=== PATIENT | male | born 1965 | race Caucasian/White ===

== ENCOUNTER → 2017-12-06 | Emergency (ER) | payer OTHER ==
[~2017-12-06] MED LIST: ALBUTEROL 2.5 MG/3 ML NEB NEB ONE; ALBUTEROL SULFATE 90 MCG/ACT 8.5 GM HNH INH PRN; ALBUTEROL/IPRATROPIUM 3 ML NEB NEB ONE; AZIT-1 PO; KETOROLAC 30 MG/ML VIAL IVP ONE; LISI-362 PO; LISINOPRIL 10 MG TAB PO ONE; NS(*) 0.9% 1000 ML BAG 1,000 ML IV ONE; PRED-1 PO; predniSONE 20 MG TAB PO ONE
--- NOTE | 2017-12-06 03:31 | ER Report ---
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 He just drove into [place] approximately 30 minutes. He is a daily tobacco smoker. As well as both have the same symptoms of congestion cough and worsening shortness of breath for the past week. She is in the emergency department as well. He complains of cough and shortness of breath. Also states that he is out of his lisinopril, and is worried about his elevated blood pressure. No headache, no chest pain, no abdominal pain. He denies fever chills. States he just overall feels unwell and describes fatigue and myalgias. Remainder of the 14 system rev: Yes Allergies: Coded Allergies: cephalexin (Verified Allergy, Intermediate, swelling, 12/06/17) Home Meds Active Scripts Lisinopril (LISINOPRIL) 10 Mg Tablet, 10 MG PO QDAY for 30 Days, #30 TAB Prov:ELIZABET CASPER MD 12/06/17 Prednisone 10 Mg Tab (PREDNISONE 10 MG TAB) 10 Mg Tablet, 50 MG PO QDAY for 5 Days, #25 TAB Prov:ELIZABET CASPER MD 12/06/17 Azithromycin (ZITHROMAX) 250 Mg Tablet, 1 TAB PO QDAY for 4 Days, #4 TAB Prov:ELIZABET CASPER MD 12/06/17 Reported Medications Lisinopril (LISINOPRIL) 10 Mg Tablet, 10 MG PO QDAY, TAB 12/06/17 Reviewed Nurses Notes: Yes Hx Smoking: Yes Smoking Status: Current: Every Day Smoker Exposure to Second Hand Smoke?: Yes Hx Substance Use Disorder: No Hx Alcohol Use: No Family History of: HTN Constitutional Vital Sign - Last 24 Hours 12/06/17 12/06/17 12/06/17 03:38 03:50 04:00 Temp 97.9 Pulse 73 72 77 Resp 24 16 16 B/P (MAP) 203/113 Pulse Ox 92 O2 Delivery Room Air Physical Exam General Appearance: The patient is alert, has no immediate need for airway protection and no current signs of toxicity. Eyes: Pupils equal and round no injection. Respiratory: Chest is non tender, diffuse wheezing and decreased air movement Cardiac: regular rate and rhythm Gastrointestinal: Abdomen is soft and non tender, no masses, bowel sounds normal. Extremities have full range of motion and are non tender. Skin: No rashes or lesions. DIFFERENTIAL DIAGNOSIS: After history and physical exam differential diagnosis was considered for shortness of breath including but not limited to pulmonary infectious process, COPD, asthma, pulmonary embolus and congestive heart failure. Medical Decision Making EKG/Imaging Imaging X-ray: CXR was obtained. I viewed the images myself on the PACS system. My interpretation of the images is: no evidence of pneumonia. The radiologist interpretation had no clinically significant variation from this interpretation. 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 His has the same symptoms of cough congestion and myalgias. Chest x-ray shows no evidence of pneumonia. I think this is more of a viral URI. Not consistent with a PE. The patient requested that I restart his lisinopril that he has been out of for weeks. I did give him lisinopril 10 mg which is his prescribed dose. I will refill his prescription. Also discharge him on a 5 day burst of steroids as well as azithromycin. Decision to Disposition Date: Dec 06, 2017 Decision to Disposition Time: 04:37 Depart Departure Latest Vital Signs Vital Signs Date Time Temp Pulse Resp B/P (MAP) Pulse Ox O2 Delivery O2 Flow Rate FiO2 12/06/17 04:00 77 16 12/06/17 03:38 97.9 203/113 92 Room Air Impression: Primary Impression: Viral URI with cough Condition: Improved Disposition: HOME OR SELF-CARE New Scripts Lisinopril (LISINOPRIL) 10 Mg Tablet 10 MG PO QDAY for 30 Days, #30 TAB Prov: ELIZABET CASPER MD 12/06/17 Prednisone 10 Mg Tab (PREDNISONE 10 MG TAB) 10 Mg Tablet 50 MG PO QDAY for 5 Days, #25 TAB Prov: ELIZABET CASPER MD 12/06/17 Azithromycin (ZITHROMAX) 250 Mg Tablet 1 TAB PO QDAY for 4 Days, #4 TAB Prov: ELIZABET CASPER MD 12/06/17 Patient Instructions: Upper Respiratory Infection (ED) ELIZABET CASPER MD Dec 06, 2017 03:31
--- NOTE | 2017-12-06 04:41 | RADIOLOGY IMAGING REPORT ---
FACILITY: [facility] PATIENT NAME: Jonathan Chauhan : 1965 MR: [id number] V: [id number] EXAM DATE: ORDERING PHYSICIAN: ELIZABET CASPER TECHNOLOGIST: Location: [facility] Patient: Jonathan Chauhan : 1965 Visit/Account:[id number] Date of Sevice: 12/06/2017 EXAMINATION: PA and Lateral Chest 12/06/2017 3:42 AM HISTORY: Shortness of breath, cough, history of COPD. COMPARISON: None FINDINGS: Cardiomediastinal contours: Normal Lungs and pleura: Markings are not significantly accentuated allowing for diminished penetration due to body habitus. No substantial hyperinflation. No focal infiltrate. Pleural spaces are clear. Bones/soft tissues: Normal IMPRESSION: No acute cardiopulmonary abnormality. Report Dictated By: Reynaldo Hairston MD at 12/06/2017 4:34 AM Report E-Signed By: Reynaldo Hairston MD at 12/06/2017 4:37 AM WSN:[id number]
[2017-12-06 04:43] VITALS: BP 159/105
== END ==
LOC: ER 03:43
DX: J06.9 Acute upper respiratory infection, unspecified (principal); R05 Cough; F17.210 Nicotine dependence, cigarettes, uncomplicated
CPT/HCPCS: 71046; 96361; 96374; 99284; J1885; J7030; J7512; J7613; J7620